=== PATIENT | male | born 1935 | race Caucasian/White ===

== ENCOUNTER → 2018-06-24 12:38 | Outpatient (CLI) | payer MEDICARE, OTHER, SELFPAY ==
--- NOTE | 2018-06-24 | DI.CT.S_ITS ---
PROCEDURE: CT SOFT TISSUE NECK W CON INDICATIONS: Left neck swellings, according to the patient improving with antibiotics. TECHNIQUE: After the administration of intravenous contrast, 3.0 mm axial sections acquired from the sella to the aortic arch. Additional oblique axial 3.0 mm sections acquired through the pharynx. 3 mm thick coronal and sagittal reformats were generated. For radiation dose reduction, the following was used: automated exposure control. COMPARISON: None. FINDINGS: Image quality: Excellent. Lymph nodes: No enlarged lymph nodes seen throughout the neck. Vessels: Visualized vasculature appears patent. Neck spaces: The oropharynx, nasopharynx, and pharynx demonstrate no mucosal lesions. The vocal cords, false vocal cords, pyriform sinuses, epiglottis, vallecula, and tongue base all appear normal. Extramucosal spaces appear unremarkable. Glands: The parotid and submandibular glands appear normal on the right and the left submandibular gland appears normal. The lung parotid gland contains a central fluid density structure with a peripheral rim of slightly enhancing tissue, is seen centered on series 2 image 27 and series 6 image 27. The rim of enhancement and fluid combined measures up to 1.4 centimeters. No adjacent adenopathy is seen. Rounded central fluid component measures up to 8 x 9 mm in maximal axial dimension. The craniocaudad extent of the inflammatory process is 1.3 cm. The central fluid in that dimension is 8 mm. An adjacent calculus is not associated. Thyroid gland appears normal where well visualized. Miscellaneous: Visualized brain and orbits appear normal. Lung apices appear clear. Superficial soft tissues appear normal. Bones: No suspicious bony lesions. Visualized sinuses and mastoids appear unremarkable. IMPRESSION: Left parotid inflammatory process appears present with central fluid density, with the overall AP, transverse and craniocaudad dimensions of the inflammatory process measuring up to 1.4 x 1.4 x 1.3 cm. The central fluid component measures 8 x 9 x 8 mm. This is contained centrally within the left parotid gland, and there is mild adjacent edema in the subcutaneous fat. A salivary duct calculus is not associated, and no adjacent adenopathy is seen. The patient reports improvement in symptomatology with antibiotics. A small central abscess is the presumed cause for the small fluid collection within the inflammatory rind. Dictated by: Suhail Pittman M.D. on 06/24/2018 at 17:11 Approved by: Suhail Pittman M.D. on 06/24/2018 at 17:19
== END ==
PROVIDERS: Family Provider Otolaryngology; PCP Family Medicine; Visit Provider Family Medicine
DX: R22.1 Localized swelling, mass and lump, neck (principal); K11.3 Abscess of salivary gland
CPT/HCPCS: 70491; Q9967

== ENCOUNTER → 2018-06-24 13:03 | Outpatient (CLI) | payer MEDICARE, OTHER, SELFPAY ==
[2018-06-24 14:06] LABS: Alanine Aminotransferase 89 IU/L (21-72); Albumin 4.5 g/dL (3.5-5.0); Albumin Globulin Ratio 1.5 (1.0-2.8); Alkaline Phosphatase 65 U/L (38-126); Aspartate Aminotransferase 56 IU/L (17-59); BUN Creatinine Ratio 16.2 (6-22); Bilirubin Total 0.6 mg/dL (0.2-1.3); Blood Urea Nitrogen 21 mg/dL (9-20); Calcium 10.5 mg/dL (8.4-10.2); Carbon Dioxide 27 mmol/L (22-32); Chloride 102 mmol/L (98-107); Globulin 3.1 g/dL (1.7-4.1); Glucose 130 mg/dL (80-110); HEMOLYSIS 19 (0-50); Potassium 3.9 mmol/L (3.4-5.1); Sodium 139 mmol/L (137-145); Total Protein 7.6 g/dL (6.3-8.2)
[2018-06-24 14:07] LABS: Hemoglobin A1C% w Est Avg Glu 6.2 % (4.0-6.0)
== END ==
PROVIDERS: Family Provider Otolaryngology; PCP Family Medicine; Visit Provider Internal Medicine Cardiovascular Disease
DX: E11.9 Type 2 diabetes mellitus without complications (principal)
CPT/HCPCS: 36415; 80053; 83036